=== PATIENT | male | born 1985 | race Caucasian/White ===

== ENCOUNTER 2024-08-03 12:45 | Emergency (ER) | payer OTHER ==
[2024-08-03 12:57] VITALS: TEMP 99
--- NOTE | 2024-08-03 13:32 | XR ---
EXAMINATION TYPE: XR wrist complete 4 views RT, XR hand complete 3 views RT DATE OF EXAM: 08/03/2024 COMPARISON: NONE HISTORY: 39-year-old male injury, swelling, and pain FINDINGS: Right wrist: The radiocarpal and distal radioulnar joint as well as the midcarpal compartment appear intact. No ac [place] fracture, subluxation, dislocation is seen. Hand: There is an oblique intra-articular fracture involving the fourth metacarpal base. Intra-articular ex tension into the fourth CMC joint. Displacement of the fracture fragment by up to 3 mm. Suspect an ad jacent nondisplaced fracture along the dorsal aspect of the hamate. Dorsal soft tissue swelling. No a dditional acute fracture, subluxation, dislocation is seen. IMPRESSION: 1. Right wrist: No acute osseous abnormality seen. 2. Right hand: Minimally impacted, intra-articular fracture third metacarpal base with 3 mm of displa cement and intra-articular extension into the CMC joint. Additional nondisplaced fracture dorsal aspe ct of the hamate adjacent to the CMC joint. Dorsal soft tissue swelling. [facility], , 08/03/2024 1:30 PM
--- NOTE | 2024-08-03 13:49 | ED ---
Upper Extremity HPI - General Chief Complaint: Extremity Injury, Upper Stated Complaint: R hand injury Time Seen by Provider: 08/03/24 13:02 Source: patient, RN notes reviewed Mode of arrival: ambulatory Limitations: no limitations - History of Present Illness Initial Comments: This is a 39-year-old male presents emergency department chief complaint of r ight hand injury. States that he was upset this morning when he punched a door. He is concerned that he may have broken his right hand as this feels similar as when his head injury in the past. States that he broke his right hand approximately 10 years ago however did not need to receive surgery the hand. States he has pain with range of motion of the hand. Denies paresthesias. He has not taken any Motrin or Tylenol today to help with symptoms. No other acute complaints at this time. - Related Data Previous Rx's Medication Instructions Recorded Azithromycin [Zithromax] 500 mg PO DAILY #5 tab 10/07/16 Allergies Allergy/AdvReac Type Severity Reaction Status Date / Time amoxicillin Allergy Rash/Hives Verified 08/03/24 12:57 codeine Allergy Unknown Verified 08/03/24 12:57 Penicillins Allergy Rash/Hives Verified 08/03/24 12:57 Review of Systems ROS Statement: Those systems with pertinent positive or pertinent negative responses have been documented in the HPI. ROS Other: All systems not noted in ROS Statement are negative. Past Medical History Past Medical History: No Reported History History of Any Multi-Drug Resistant Organisms: None Reported Past Surgical History: Adenoidectomy, Tonsillectomy Past Psychological History: Anxiety, Depression Smoking Status: Vaper Past Alcohol Use History: None Reported Past Drug Use History: None Reported General Exam Limitations: no limitations General appearance: alert, in no apparent distress Eye exam: Present: normal appearance, PERRL, EOMI. Absent: scleral icterus, conjunctival injection, periorbital swelling Neck exam: Present: normal inspection. Absent: tenderness, meningismus, lymphadenopathy Respiratory exam: Present: normal lung sounds bilaterally. Absent: respiratory distress, wheezes, rales, rhonchi, stridor Cardiovascular Exam: Present: regular rate, normal rhythm, normal heart sounds. Absent: systolic murmur, diastolic murmur, rubs, gallop, clicks GI/Abdominal exam: Present: soft, normal bowel sounds. Absent: distended, tenderness, guarding, rebound, rigid Right Hand Wrist exam: Present: tenderness, swelling (lateral dorsum of hand). Absent: full ROM, ecchymosis, deformity, crepitus, dislocation Neuro motor exam: Present: wrist extension intact, thumb opposition intact, thumb IP flexion intact, thumb adduction intact Vascular: Present: normal capillary refill, radial pulse (2+). Absent: vascular compromise Back exam: Present: normal inspection Skin exam: Present: warm, dry, intact, normal color. Absent: rash Course Vital Signs 08/03/24 08/03/24 12:54 15:08 Temperature 99 F Pulse Rate 91 72 Respiratory 16 18 Rate Blood Pressure 127/83 124/74 O2 Sat by Pulse 99 99 Oximetry Procedures - Orthopedic Splinting/Casting Injury #1 Side: right Upper Extremity Injury Location: hand Upper Extremity Immobilizer: ulnar gutter, Jerzy wrap, synthetic pre-padded splint Medical Decision Making - Medical Decision Making Was pt. sent in by a medical professional or institution (, PA, INDUSTRIAL ENGINEERING TECHNICIAN, urgent care, hospital, or fci...) When possible be specific @ -No Did you speak to anyone other than the patient for history (EMS, parent, family, police, friend...)? What history was obtained from this source @ -No Did you review nursing and triage notes (agree or disagree)? Why? @ -I reviewed and agree with nursing and triage notes Were old charts reviewed (outside hosp., previous admission, EMS record, old EKG, old radiological studies, urgent care reports/EKG's, fci records)? Report findings @ -No old charts were reviewed Differential Diagnosis (chest pain, altered mental status, abdominal pain women, abdominal pain men, vaginal bleeding, weakness, fever, dyspnea, syncope, headache, dizziness, GI bleed, back pain, seizure, CVA, palpatations, mental health, musculoskeletal)? @ -Differential Musculoskeletal Muscular strain, contusion, ligament sprain, fracture, arthritis, septic arthritis, bursitis, cellulitis, muscle spasm, nerve compression, DVT, arterial occlusion, herpes zoster, electrolyte abnormality, tumor.... This is not meant to be in all inclusive list EKG interpreted by me (3pts min.). @ -none X-rays interpreted by me (1pt min.). @ -XR of the right hand and right wrist reveals a minimally impacted intra- articular fracture of the third metacarpal base with 3 mm of displacement and intra-articular extension into the CMC joint with a additional nondisplaced fracture of the dorsal aspect of the hamate is into the CMC joint with dorsal soft tissue swelling CT interpreted by me (1pt min.). @ -None done U/S interpreted by me (1pt. min.). @ -None done What testing was considered but not performed or refused? (CT, X-rays, U/S, labs)? Why? @ -None What meds were considered but not given or refused? Why? @ -None Did you discuss the management of the patient with other professionals (professionals i.e. , PA, INDUSTRIAL ENGINEERING TECHNICIAN, lab, RT, psych nurse, aids social worker, communications assistant, teacher, humane officer, manager of case)? Give summary @ -No Was smoking cessation discussed for >3mins.? @ -No Was critical care preformed (if so, how long)? @ -No Were there social determinants of health that impacted care today? How? (Homelessness, low income, unemployed, alcoholism, drug addiction, transportation, low edu. Level, literacy, decrease access to med. care, [facility], rehab)? @ -No Was there de-escalation of care discussed even if they declined (Discuss DNR or withdrawal of care, Hospice)? DNR status @ -No What co-morbidities impacted this encounter? (DM, HTN, Smoking, COPD, CAD, Cancer, CVA, ARF, Chemo, Hep., AIDS, mental health diagnosis, sleep apnea, morbid obesity)? @ -None Was patient admitted / discharged? Hospital course, mention meds given and route, prescriptions, significant lab abnormalities, going to OR and other pertinent info. @ -Discharge. 39-year-old male with right hand pain. My evaluation patient have mild swelling of the dorsum lateral right hand with tenderness palpation over this area as well. Patient is neurovascularly intact and has full range of motion of the wrist. X-ray concerning for a minimally impacted fracture of the third metacarpal. Patient was placed in a ulnar gutter splint and provided with wildfire prevention specialist follow-up. He is instructed to continue to rest his hand, ice, elevate and use Tylenol Motrin as needed. Keep splint in place until follow-up with wildfire prevention specialist has been established. All questions have been answered at bedside strict return parameters arben with the patient he is verbalized understanding. Case discussed with my attending Dr. Heck Undiagnosed new problem with uncertain prognosis? @ -No Drug Therapy requiring intensive monitoring for toxicity (Heparin, Nitro, Insulin, Cardizem)? @ -No Were any procedures done? @ -orthopedic splinting Diagnosis/symptom? @ -metacarpal fracture Acute, or Chronic, or Acute on Chronic? @ -Acute Uncomplicated (without systemic symptoms) or Complicated (systemic symptoms)? @ -uncomplicated Side effects of treatment? @ -No Exacerbation, Progression, or Severe Exacerbation? @ -No Poses a threat to life or bodily function? How? (Chest pain, [place], ID, pneumonia, PE, COPD, DKA, ARF, appy, cholecystitis, CVA, Diverticulitis, Homicidal, Suicidal, threat to staff... and all critical care pts) @ -No Disposition Clinical Impression: Boxer's fracture Disposition: HOME SELF-CARE Condition: Good Instructions (If sedation given, give patient instructions): Hand Fracture (ED) Additional Instructions: Please return to the Emergency Department if symptoms worsen or any other concerns. Keep splint in place until follow-up with wildfire prevention specialist. Continue to rest the affected hand, ice and elevate. Use Tylenol Motrin as needed. Is patient prescribed a controlled substance at d/c from ED?: No Referrals: Min Alston DO [Primary Care Provider] - 1-2 days Denilson Bright MD [STAFF PHYSICIAN] - 1-2 days Time of Disposition: 14:16
[2024-08-03 15:12] VITALS: BP 124/74; PULSE 72; RESP 18
== END 2024-08-03 15:21 | disposition home or self-care (01) ==
LOC: EC 12:45
CPT/HCPCS: 29125; 99283